=== PATIENT | male | born 1995 | race Caucasian/White ===

== ENCOUNTER 2017-05-24 10:50 | Observation (INO) | payer BC ==
[~2017-05-24] VITALS: Ht 175.3 cm; Wt 75.7 kg
--- NOTE | ~2017-05-24 | CON ---
PATIENT'S NAME: KADEN OSPINA [facility] AGE: 21 Y [address] ROOM: [id number] [place], [place] [address] LOCATION: [facility] [place] DATE: 05/24/2017 Consultation DISCHARGE DATE: FAMILY PHYSICIAN: Kevin Krishna MD ATTENDING PHYSICIAN: Kevin Krishna DATE OF CONSULTATION: 05/24/2017 NEUROLOGY CONSULTATION TIME OF SEEN: 5:00 p.m. HISTORY OF PRESENT ILLNESS: Mr. Ospian is a 21-year-old male patient, who says for a period of around a week and a half, he has had a bifrontal headache, almost to the point of having a migraine headache on a daily basis, associated with some photophobia. On Saturday 4 days ago, the patient presented to the medical clinic with a bad headache and feeling of myalgias as well as worsening of his headache. He was noted to have a fever at that time reported to me at 103. During the course of the week, the patient seemed to improve, and he even went back to work yesterday. He said that his fever defervesced. He actually felt better and did not have myalgias. However, his fever did come back yesterday evening, and he went to his primary medical doctor today where he was said to have a fever that he claimed to be around 102. Here in the hospital upon arrival, he did not have any fever. He did have stiff neck especially on turning his neck, but did not have true meningismus upon flexing his neck nor did he have a positive Kernig's sign. He had some muscle tenderness and increased muscle tone, particularly in his right strap muscles. Generally, he said that he felt very wiped out, much more than he would normally feel when he wrestled in sports. He denied any history of any rashes or excoriations of the skin. He never had any vesicular eruptions of his skin. He has no ear pain. He denies any mouth pain or tongue pain. No problems with chewing or swallowing, but he has lost his appetite to eat presently. He has only had some minor fluid intake. Currently, he is receiving IV fluids post receiving a lumbar puncture to rule out any possibility of recent meningitis. The current results of his CSF is pending. Again currently, the patient has a fever that is defervesced, though he continues to have what sounds like a migraine headache with photophobia and phonophobia. When I saw the patient, he was sitting in the dark and did appear to be uncomfortable. The patient denied any sick contacts other than his father having some headache as well as myalgias back on May 08, 2017. This had resolved by the time that he and the patient went to [facility] for a day doing some fishing back on May 12, 2017. The patient possibly had a mosquito bite at that time, but he denied any rashes of his skin at any point of the days thereafter. The patient denies being in any PATIENT'S NAME: KADEN OSPINA [facility] AGE: 21 Y [address] ROOM: [id number] [place] [id number] LOCATION: [facility] [place] ADMIT DATE: 05/24/2017 Consultation DISCHARGE DATE: FAMILY PHYSICIAN: Kevin Krishna MD ATTENDING PHYSICIAN: Kevin Krishna [facility]. PRIOR MEDICAL HISTORY: There is no prior significant medical history. MEDICATIONS: He is not on any current medications. SOCIAL HISTORY: He is engaged to be . He actually has a 1-year-old child. He does not smoke, but he used to use chewing tobacco. He does not use any illicit drugs. He currently works at [employer]. FAMILY HISTORY: There is no family history that is contributory here. REVIEW OF SYSTEMS: The patient states that perhaps 2 weeks, he has had a headache bifrontal in nature with some stiff neck and had a height of his fever seem to been on Saturday a few days prior to this admission. There was some defervescence of his fever yesterday, but only for the fever to come back briefly where he again had more myalgic pain as well as some neck stiffness and a migraine type headache with photophobia and phonophobia. Today, he was admitted to the hospital for working him up for a lumbar puncture to rule out any possibility of a meningitis. There is no recent history of alteration in his sensorium. He denies any focal neurologic deficits such as weakness or sensory numbness. The rest of review of systems is within normal limits. ID-husain, no sick contacts other than his dad being having a myalgic type of process with upper respiratory cough back on May 08, 2017. The father had improved but similar symptoms. PHYSICAL EXAMINATION: GENERAL: The patient is lying in bed, but he is alert and oriented. He is lying in the dark. He has some aversion to light and sound. VITAL SIGNS: Revealed a pulse of 86, respiration rate 12, blood pressure is missing, temperature is afebrile. NEUROLOGIC: Cranial nerves 2 through 12 were intact. His motor exam revealed 5/5 power in the upper and lower extremities proximally and distally. He had no evidence of any pronator drift. Coordination on [id number] was grossly intact. He had some local tenderness with some increased tone of the right paraspinal elevator muscles of his neck and some tenderness into the right neck. I did not sense meningismus, particularly on flexion and extension of the neck, and he had a negative Kernig's and Brudzinski's sign. Sensory exam was intact. Reflexes were +2 at the biceps, triceps, brachioradialis, patellar, and ankle jerk reflexes. Plantar reflex was downgoing. The PATIENT'S NAME: KADEN OSPINA [facility] AGE: 21 Y [address] ROOM: [place] [address] LOCATION: [facility] [place] ADMIT DATE: 05/24/2017 Consultation DISCHARGE DATE: FAMILY PHYSICIAN: Kevin Krishna MD ATTENDING PHYSICIAN: Kevin Krishna patient's gait was deferred as he was experiencing migraine symptoms presently. IMPRESSION: The patient has what sounds like some viral type syndrome, possibly associated with meningitis. His labs for CSF analysis is currently pending. He seems to be experiencing more of a migraine type headache at this point in time. Thus, we will give him a trial of sumatriptan subcutaneous 6 mg injection to try to abort the migraine. We will continue to give him Tylenol just to make him more comfortable with any fever that seems to have defervesced at this time. I do not think this would represent an encephalitis as there is no confusion ongoing here, and the patient is unclear if he has true meningismus. He does have more myalgic symptoms, and there is evidence for muscle bulk increase on the right, possibly from recent fishing event he had with his father on . The patient currently just feels a bit wiped out, though in general he has not had any upper respiratory tract signs and no cough. He did report a bit of more sputum. He does have a diminished appetite and has not been eating today. We will follow up with the results of his CSF and have sent the CSF for analysis for multipanel for meningitis and encephalitis including for West Nile virus. I have also sent for herpes PCR, though from the patient's normal mental status without any evidence of any seizure activity or mental status change, the chance for herpes meningitis or encephalitis would be extremely low. We will continue to recommend supportive therapy for the patient as well as the trial of sumatriptan for current migraine headache. Continue to follow along with Dr. Krishna on the status of Mr. Ospina. MD MYA ELIZABETH/migel /[id number] d: 05/25/17 0055 t: 05/29/17 1748, CONSULTATION REPORT
[2017-05-24] MEDS ORDERED: TYLENOL325 MG PO (11:33)
--- NOTE | 2017-05-24 12:33 | NUR ---
21 Y/O MALE ADMITTED FOR HEADACHES, PHOTOPHOBIA, DEHYDRATION FOR THE PAST TWO WEEKS, ALSO HAS HAD A FEVER, NECK PAIN & STIFFNESS, NAUSEA, DIZZINESS WELL. FOR THE PAST SEVERAL DAYS PT HAS BEEN DISORIENTED & FORGETFUL ON OCCASION. PT STATES HE HAS BEEN ABLE TO KEEP LIQUIDS DOWN BUT HAS NOT HAD AN APPETITE & HAS LOST ABOUT 8 LBS IN THE PAST 2 WKS. PT IS CURRENTLY A&O BUT DOES HAVE THE BLANKET OVER HIS EYES. PT ALSO STATES THAT IT IS EVEN PAINFUL TO MOVE HIS EYES IN DIFFERENT DIRECTIONS TODAY. NKMA PT HAS CHEWED TOBACCO X4 YRS BUT QUIT 6 MONTHS AGO. REPORT GIVEN TO STEFANIA BROTHERS PT PRIMARY CARE NURSE. ADM EDUCATION COMPLETED WITH PT & REENA
--- NOTE | 2017-05-24 18:47 | NUR ---
Significant event: Patient is alert and oriented x3. VSS, on room air. NO fever this shift. Complains of frontal headache, photophobia, nausea and eye pain with movement. Pt offered Zofran and refused. Did take a norco late afternoon. IV to Right inner forearm with normal saline running at 125ml/hr after 500ml bolus. Pt voided x2. No stools this shift. Had CT of head and lumbar puncture. Dr Reynoso also consulted. Gave IM imitrex, with some relief. Need to encourage, fluids, caffeine intake, and food intake. Cooperative with cares.
--- NOTE | 2017-05-25 05:45 | NUR ---
SIGNIFICANT EVENT: Pt alert & oriented. Independent in room. Denies pain/nausea this shift. PIV to R) FA infusing NS at 125 and intermittent IV antiviral acyclovir. Ate 75% of dinner. 800 in PO, 1682 IV with 3 Mod vds and no BM. VSS on RA. Regular diet. Pleasant and cooperative with cares.
--- NOTE | 2017-05-25 11:35 | NUR ---
(-)MST. APPETITE IS GOOD; PO INTAKE SINCE ADMIT IS 75%. NO C/O NAUSEA. BMI: 24.6. WILL ASSIST NEEDED.
[2017-05-25] MEDS ORDERED: SALINE SENSITI360 ML OPHTH (14:18)
--- NOTE | 2017-05-25 15:39 | NUR ---
Significant Event: Pt c/o mild headache this am but refused pain meds. Up ad zaida. Dc to home at 1510. States understanding of all dc instructions, medications, and follow up appointments. Pt belongings sent with pt. Follow up:
== END 2017-05-25 15:10 | disposition disaster alternative care site (69) ==
LOC: GMSU 10:50
PROVIDERS: ADMIT Family Medicine
DX: A87.9 Viral meningitis, unspecified (principal); G43.909 Migraine, unspecified, not intractable, without status migrainosus; E86.0 Dehydration; H53.143 Visual discomfort, bilateral; F17.220 Nicotine dependence, chewing tobacco, uncomplicated
CPT/HCPCS: G0378; G0379; J0133; J3030; J7030; J7040; J7050